=== PATIENT | female | born 1990 | race Caucasian/White ===

== ENCOUNTER 2017-01-22 13:41 | Emergency (ER) | payer MEDICAID ==
[~2017-01-22 13:41] MED LIST: CALCIUM500 M1 PO; CLARITIN10 MG PO; D-2000 90 MG-201 TAB PO; DIAZEPAM2 MG PO; ED PERCOCE6 TAB/BOTT PO; PHENERGAN25 M4 RC; PILOCARPINE HYDR5 MG PO; TOPAMAX100 MG PO; TRAMADOL 50 MG TAB PO; ZOFRAN ODT4 MG PO; ZOFRAN4 M2 PO
== END 2017-01-22 16:01 | disposition home or self-care (01) ==
LOC: ED 13:41
DX: M79.671 Pain in right foot (principal); Z98.890 Other specified postprocedural states; G80.9 Cerebral palsy, unspecified; R79.89 Other specified abnormal findings of blood chemistry

== ENCOUNTER → 2019-09-14 | Outpatient (CLI) | payer MEDICAID ==
[2017-01-22 16:03] VITALS: BP 122/74
[2019-09-14 12:42] LABS: EOS # 0.1 (0.04-0.40); EOS % 1.2 % (1.0-5.0); HEMATOCRIT 47.6 % (37.0-47.0); LYMPH# 2.5 (1.50-4.00); MEAN CELL VOLUME 92 fl (78-100); MEAN CORPUSCULAR HEMOGLOBIN 31 pg (27-31); MEAN CORPUSCULAR HGB CONC 34 g/dL (33-37); MONO # 0.5 (0.20-0.80); NEU # 4.2 (1.40-6.50); PLATELET COUNT 204 K/mm3 (130-400); RED CELL DISTRIBUTION WIDTH 13.1 % (11.5-14.5); WHITE BLOOD COUNT 7.4 K/mm3 (4.8-10.8)
[2019-09-14 12:49] LABS: ALBUMIN 4.5 g/dL (3.5-5.0); POTASSIUM 3.7 mmol/L (3.5-5.1)
[2019-09-14 12:51] LABS: TOTAL PROTEIN 7.7 g/dL (6.4-8.3)
[2019-09-14 12:53] LABS: TOTAL BILIRUBIN 0.5 mg/dL (0.2-1.2)
== END ==
LOC: RAD 12:03
PROVIDERS: Family Medicine
DX: Z00.00 Encounter for general adult medical examination without abnormal findings (principal); M79.605 Pain in left leg; D64.9 Anemia, unspecified; E55.9 Vitamin D deficiency, unspecified

== ENCOUNTER → 2021-06-28 | Day surgery (SDC) | payer MEDICAID | END | disposition home or self-care (01) | LOC: MSO 09:12 | DX: G80.8 Other cerebral palsy (principal); G40.209 Localization-related (focal) (partial) symptomatic epilepsy and epileptic syndromes with complex partial seizures, not intractable, without status epilepticus; R10.9 Unspecified abdominal pain; Z79.899 Other long term (current) drug therapy | CPT/HCPCS: 00731; J2250; J2704; J7120 ==

== ENCOUNTER → 2021-11-07 | Outpatient (CLI) | payer MEDICAID ==
[2021-11-07 23:19] LABS: FOLLICLE STIMULATING HORMONE 6.2 mIU/mL (()); LUTENIZING HORMONE 1.7 mIU/mL (()); PROGESTERONE 3.6 ng/mL (())
== END ==
LOC: LAB 14:57
PROVIDERS: Family Medicine
DX: N95.1 Menopausal and female climacteric states (principal)

== ENCOUNTER → 2022-02-28 | Outpatient (CLI) | payer MEDICAID | LOC: RAD 16:17 | DX: G31.9 Degenerative disease of nervous system, unspecified (principal); G80.9 Cerebral palsy, unspecified; G43.009 Migraine without aura, not intractable, without status migrainosus; E55.9 Vitamin D deficiency, unspecified; H92.01 Otalgia, right ear | CPT/HCPCS: A9585 ==

== ENCOUNTER 2024-01-22 12:37 | Emergency (ER) | payer MEDICAID ==
[~2024-01-22] VITALS: Ht 152.4 cm; Wt 38.6 kg
[2024-01-22 15:40] VITALS: BP 126/86
== END 2024-01-22 15:50 | disposition home or self-care (01) ==
LOC: ED 12:37
DX: M25.552 Pain in left hip (principal); S80.12XA Contusion of left lower leg, initial encounter; Z98.890 Other specified postprocedural states; W17.2XXA Fall into hole, initial encounter; Z96.698 Presence of other orthopedic joint implants; Y92.096 Garden or yard of other non-institutional residence as the place of occurrence of the external cause

== ENCOUNTER → 2025-01-25 | Outpatient (CLI) | payer MEDICAID ==
[2025-01-25 23:04] LABS: T3 FREE 2.5 pg/mL (1.7-3.7)
== END ==
LOC: LAB 15:22
PROVIDERS: Family Medicine
DX: E78.5 Hyperlipidemia, unspecified (principal); E03.9 Hypothyroidism, unspecified; E55.9 Vitamin D deficiency, unspecified